=== PATIENT | male | born 1990 | race Caucasian/White ===

== ENCOUNTER 2018-06-25 19:24 | Emergency (ER) | payer SELFPAY, OTHER, MEDICAID ==
[2018-06-26] MEDS: KETOROLAC 60 MG INJ IM (00:21)
[2018-06-26] MEDS: HYDROCODONE/APAP (5/325) TAB PO ×2 (00:22→01:02)
== END 2018-06-26 02:30 | disposition home or self-care (01) ==
LOC: FTE 19:24
DX: S39.92XA Unspecified injury of lower back, initial encounter (principal); J45.909 Unspecified asthma, uncomplicated; W18.40XA Slipping, tripping and stumbling without falling, unspecified, initial encounter; Y92.89 Other specified places as the place of occurrence of the external cause
CPT/HCPCS: 72131; 96372; 99285-25